=== PATIENT | male | born 1970 | race Two or more races ===

== ENCOUNTER 2018-03-14 01:30 | Emergency (ER) | payer MEDICARE, MEDICAID ==
[~2018-03-14] VITALS: Ht 180.3 cm; Wt 81.6 kg
[2018-03-14 02:31] LABS: BASOPHILS # (AUTO) 0.1 /CMM (0.0-0.2); BASOPHILS % (AUTO) 1.6 % (0.0-2.0); EOSINOPHILS % (AUTO) 2.3 % (0.0-6.0); HEMATOCRIT 48 % (39-51); HEMOGLOBIN 16.4 g/dL (13.5-17.5); LYMPHOCYTES % (AUTO) 34.5 % (20.0-44.0); MEAN CORPUSCULAR HEMOGLOBIN 32 PG (26.0-33.0); MEAN CORPUSCULAR HGB CONC 34 g/dl (31.0-36.0); MEAN CORPUSCULAR VOLUME 93 fL (80-96); MONOCYTES # (AUTO) 0.4 /CMM (0.1-1.30); MONOCYTES % (AUTO) 7.7 % (2.0-12.0); NEUTROPHILS # (AUTO) 3.2 /CMM (1.8-8.9); NEUTROPHILS % (AUTO) 53.9 % (43.0-81.0); PLATELET COUNT (AUTO) 353 /CMM (150-450); RDW COEFFICIENT OF VARIATION 12.1 (11.5-15.0); RED BLOOD CELL COUNT(AUTO) 5.16 MIL/uL (4.5-6.0); WHITE BLOOD COUNT (AUTO) 5.8 K/uL (4.3-11.0)
[2018-03-14 02:47] LABS: CALCIUM, SERUM 9.4 mg/dL (8.5-10.1); CARBON DIOXIDE 35 mmol/L (21-32); CHLORIDE 104 mmol/L (98-107); CREATININE 1.2 mg/dL (0.6-1.3); GLUCOSE 115 mg/dL (74-106); POTASSIUM 4.3 mmol/L (3.5-5.1); SODIUM SERUM 140 mmol/L (136-145); UREA NITROGEN, BLOOD 16 mg/dL (7-18)
[2018-03-14 02:53] LABS: ACETAMINOPHEN 0 ug/ml (10-30); ALANINE AMINOTRANSFERASE 26 U/L (12-78); ALBUMIN 3.8 g/dL (3.4-5.0); ALCOHOL, BLOOD < 3 mg/dL (0-0); ALKALINE PHOSPHATASE 107 U/L (46-116); ASPARTATE AMINOTRANSFERASE 17 U/L (15-37); BILIRUBIN,DIRECT 0.2 mg/dL (0.0-0.2); BILIRUBIN,TOTAL 1.3 mg/dL (0.2-1.0); SALICYLATE < 0.2 mg/dL (2.8-20.0); TOTAL PROTEIN, SERUM 6.8 g/dL (6.4-8.2)
--- NOTE | 2018-03-14 03:50 | NUR ---
ASSUMED CARE OF PT.
--- NOTE | 2018-03-14 03:51 | NUR ---
PT IS TRYING TO GIVE A URINE SAMPLE. PT IS DRINKING WATER. WILL CONTINUE TO CHECK ON PT.
[2018-03-14 04:42] LABS: APPEARANCE,URINE CLEAR (CLEAR); BILIRUBIN,URINE NEGATIVE (NEGATIVE); BLOOD, URINE NEGATIVE Ery/uL (NEGATIVE); COLOR,URINE YELLOW (YELLOW); KETONES,URINE NEGATIVE (NEGATIVE); LEUKOCYTE ESTERASE ,URINE NEGATIVE (NEGATIVE); NITRITE, URINE NEGATIVE (NEGATIVE); PROTEIN,URINE NEGATIVE (NEGATIVE); UGLUCOSE NEGATIVE (NEGATIVE); UROBILINOGEN,URINE 0.2 EU/dL (0.2)
--- NOTE | 2018-03-14 04:45 | NUR ---
[facility]A FOR S TRANSPORT ETA 1.5HR TRIP NUMBER [id number]
--- NOTE | 2018-03-14 06:29 | NUR ---
Patient discharged to [facility]IA [facility] in stable condition. Written and verbal after care instructions given. Patient verbalizes understanding of instruction. COPY OF ALL LABS GIVEN TO EMT FOR [facility]. PT IS MEDICALLY CLEARED. VSS
[2018-03-14 06:35] VITALS: BP 124/75
== END 2018-03-14 06:36 | disposition home or self-care (01) ==
LOC: ER 01:31
DX: R45.851 Suicidal ideations (principal); F31.9 Bipolar disorder, unspecified
CPT/HCPCS: 36415; 80048; 80076; 80305; 80329; 81001; 85025; 99285; A4606; G0480 ×2; 81000-TC; Z7610

== ENCOUNTER 2018-05-19 19:25 | Emergency (ER) | payer MEDICAID, MEDICARE, OTHER ==
[~2018-05-19] VITALS: Ht 180.3 cm; Wt 85.3 kg
--- NOTE | 2018-05-19 20:06 | NUR ---
URINE SPECIMEN OBTAINED AND SENT TO THE LAB.
[2018-05-19 20:16] VITALS: BP 138/90
--- NOTE | 2018-05-19 20:16 | NUR ---
DANIELE NEEDS MEDICAL CLEARANCE FOR [facility] PT STATES +SI/-HI WITH PLAN "TO RUN INTO TRAFFIC". PT AOX3 RR EVEN AND UNLABORED. NO SOB NOTED. NAD NOTED. NO NVD AT THIS TIME. PT GOWNED, PLACED ON SAFETY PRECUATIONS. PT WAITING FOR MD RAM.
--- NOTE | 2018-05-19 20:20 | NUR ---
DR. GARCIA AT BEDSIDE FOR EVAL.
[2018-05-19 20:28] LABS: BASOPHILS # (AUTO) 0.1 /CMM (0.0-0.2); BASOPHILS % (AUTO) 1.2 % (0.0-2.0); EOSINOPHILS % (AUTO) 0.7 % (0.0-6.0); HEMATOCRIT 45 % (39-51); HEMOGLOBIN 15.4 g/dL (13.5-17.5); LYMPHOCYTES # (AUTO) 1.8 /CMM (0.8-4.8); LYMPHOCYTES % (AUTO) 27.6 % (20.0-44.0); MEAN CORPUSCULAR HGB CONC 35 g/dl (31.0-36.0); MEAN CORPUSCULAR VOLUME 92 fL (80-96); MONOCYTES # (AUTO) 0.4 /CMM (0.1-1.30); MONOCYTES % (AUTO) 5.7 % (2.0-12.0); NEUTROPHILS # (AUTO) 4.2 /CMM (1.8-8.9); NEUTROPHILS % (AUTO) 64.8 % (43.0-81.0); PLATELET COUNT (AUTO) 381 /CMM (150-450); RDW COEFFICIENT OF VARIATION 12.9 (11.5-15.0); RED BLOOD CELL COUNT(AUTO) 4.83 MIL/uL (4.5-6.0); WHITE BLOOD COUNT (AUTO) 6.6 K/uL (4.3-11.0)
--- NOTE | 2018-05-19 20:32 | NUR ---
LAB AT BEDSIDE FOR BLOOD DRAW
[2018-05-19 20:44] LABS: CALCIUM, SERUM 9.4 mg/dL (8.5-10.1); POTASSIUM 4.4 mmol/L (3.5-5.1)
--- NOTE | 2018-05-19 20:49 | NUR ---
CLINICALS FAXED TO [facility].
--- NOTE | 2018-05-19 21:19 | NUR ---
PT LEFT WITHOUT D/C INSTRUCTIONS. DR. GARCIA AWARE
== END 2018-05-19 21:24 | disposition left against medical advice (07) ==
LOC: ER 19:31
DX: R45.851 Suicidal ideations (principal); F32.9 Major depressive disorder, single episode, unspecified; F17.200 Nicotine dependence, unspecified, uncomplicated; Z60.2 Problems related to living alone
CPT/HCPCS: 36415; 80048; 80305; 85025; 99284; A4606; G0480; Z7610

== ENCOUNTER 2018-09-18 02:02 | Emergency (ER) | payer MEDICARE, OTHER ==
[~2018-09-18] VITALS: Ht 182.9 cm; Wt 92.5 kg
[2018-09-18 02:20] VITALS: BP 148/90
--- NOTE | 2018-09-18 02:20 | NUR ---
PT BIBSELF C/C MEDICAL CLEARANCE. +SI, DENIES PLAN. -HI. NAD NOTED. RESP EVEN AND UNLABORED. PT IN BED 13. WILL CONTINUE TO MONITOR.
--- NOTE | 2018-09-18 02:49 | NUR ---
PT REQUESTED TO DRINK MORE WATER. URINE COLLECTION PENDING.
[2018-09-18 02:52] LABS: BASOPHILS # (AUTO) 0.1 /CMM (0.0-0.2); BASOPHILS % (AUTO) 0.8 % (0.0-2.0); EOSINOPHILS % (AUTO) 1.2 % (0.0-6.0); HEMATOCRIT 45 % (39-51); HEMOGLOBIN 15.9 g/dL (13.5-17.5); LYMPHOCYTES # (AUTO) 1.8 /CMM (0.8-4.8); LYMPHOCYTES % (AUTO) 23.7 % (20.0-44.0); MEAN CORPUSCULAR HGB CONC 35 g/dl (31.0-36.0); MEAN CORPUSCULAR VOLUME 94 fL (80-96); MONOCYTES # (AUTO) 0.8 /CMM (0.1-1.30); MONOCYTES % (AUTO) 10.2 % (2.0-12.0); NEUTROPHILS # (AUTO) 4.9 /CMM (1.8-8.9); NEUTROPHILS % (AUTO) 64.1 % (43.0-81.0); PLATELET COUNT (AUTO) 271 /CMM (150-450); RED BLOOD CELL COUNT(AUTO) 4.83 MIL/uL (4.5-6.0); WHITE BLOOD COUNT (AUTO) 7.7 K/uL (4.3-11.0)
[2018-09-18 03:03] LABS: CALCIUM, SERUM 9.8 mg/dL (8.5-10.1); CARBON DIOXIDE 31 mmol/L (21-32); CHLORIDE 100 mmol/L (98-107); GLUCOSE 107 mg/dL (74-106); POTASSIUM 3.8 mmol/L (3.5-5.1); SODIUM SERUM 140 mmol/L (136-145); UREA NITROGEN, BLOOD 27 mg/dL (7-18)
[2018-09-18 03:11] LABS: ALANINE AMINOTRANSFERASE 33 U/L (12-78); ALBUMIN 3.9 g/dL (3.4-5.0); ALCOHOL, BLOOD < 3 mg/dL (0-0); ALKALINE PHOSPHATASE 105 U/L (46-116); ASPARTATE AMINOTRANSFERASE 39 U/L (15-37); BILIRUBIN,DIRECT 0.3 mg/dL (0.0-0.2); TOTAL PROTEIN, SERUM 6.9 g/dL (6.4-8.2)
--- NOTE | 2018-09-18 03:12 | NUR ---
URINE COLLECTED AND SENT TO LAB
[2018-09-18 03:13] LABS: ACETAMINOPHEN 0 ug/ml (10-30); SALICYLATE 0.6 mg/dL (2.8-20.0)
--- NOTE | 2018-09-18 04:45 | NUR ---
[facility] WILL CALL NUMBER [phone]
--- NOTE | 2018-09-18 04:51 | NUR ---
CLINICALS FAXED OVER TO [facility]
--- NOTE | 2018-09-18 05:19 | NUR ---
RECEIVED A CALL FROM [facility] DAVIDSON STATING PT ELOPED [facility] AND WALKED OVER TO [facility]. MADE AWARE. INFORMED BY [facility] PT WILL NOT BE ALLOWED INTO THEIR FACILITY.
--- NOTE | 2018-09-18 05:22 | NUR ---
Patient eloped from facility. ER MD notified.
== END 2018-09-18 05:30 | disposition left against medical advice (07) ==
LOC: ER 02:07
DX: R45.851 Suicidal ideations (principal); F15.10 Other stimulant abuse, uncomplicated; F17.200 Nicotine dependence, unspecified, uncomplicated; F20.9 Schizophrenia, unspecified; F31.9 Bipolar disorder, unspecified; Z60.2 Problems related to living alone
CPT/HCPCS: 36415; 80048-TC; 80076-TC; 80305; 85025-TC; G0480

== ENCOUNTER → 2019-04-11 | Emergency (ER) | payer MEDICARE, OTHER ==
[~2019-04-11] VITALS: Ht 180.3 cm; Wt 81.2 kg
[2019-04-11 23:08] LABS: BASOPHILS # (AUTO) 0.1 /CMM (0.0-0.2); BASOPHILS % (AUTO) 1.1 % (0.0-2.0); EOSINOPHILS % (AUTO) 2.8 % (0.0-6.0); HEMATOCRIT 43 % (39-51); HEMOGLOBIN 14.8 g/dL (13.5-17.5); LYMPHOCYTES # (AUTO) 1.6 /CMM (0.8-4.8); LYMPHOCYTES % (AUTO) 24.7 % (20.0-44.0); MEAN CORPUSCULAR HGB CONC 34 g/dl (31.0-36.0); MEAN CORPUSCULAR VOLUME 94 fL (80-96); MONOCYTES # (AUTO) 0.6 /CMM (0.1-1.30); MONOCYTES % (AUTO) 8.7 % (2.0-12.0); NEUTROPHILS # (AUTO) 4.2 /CMM (1.8-8.9); NEUTROPHILS % (AUTO) 62.7 % (43.0-81.0); PLATELET COUNT (AUTO) 286 /CMM (150-450); RED BLOOD CELL COUNT(AUTO) 4.62 MIL/uL (4.5-6.0); WHITE BLOOD COUNT (AUTO) 6.6 K/uL (4.3-11.0)
--- NOTE | 2019-04-11 23:08 | NUR ---
DANIELE. TO ER BED 13. AAOX4. NO RSP DISTRESS NOTED. AMBULATORY. CAME IN FOR THOUGHTS OF SUICIDE. DENIES HI. PT ADMITS TO HEARING VOICES BUT NON AT THE TIME OF ASSESSMENT. PT IS STRIPPED OFF FROM HIS CLOTHINGS AND BELONGINGS WHICH IS PLACED IN THE LOCKERS IN THE UTILITY ROOM. SECURITY AT BEDSIDE FOR WANDING. BLOOD DRAW.
--- NOTE | 2019-04-11 23:08 | NUR ---
Note undone in EDM - 04/12/19 at 0133 by AKIL BIBSELF. TO ER BED 13. AAOX4. NO RSP DISTRESS NOTED. AMBULATORY. CAME IN FOR THOUGHTS OF SUICIDE. PT REPORTS THAT HE PLANS TO HURT HIMSELF BY RUNNING INTO TRAFFIC OR TAKE HIGH DOSES OF MEDICATION. DENIES HI. PT ADMITS TO HEARING VOICES BUT NON AT THE TIME OF ASSESSMENT. PT IS STRIPPED OFF FROM HIS CLOTHINGS AND BELONGINGS WHICH IS PLACED IN THE LOCKERS IN THE UTILITY ROOM. SECURITY AT BEDSIDE FOR WANDING. BLOOD DRAW.
[2019-04-11 23:15] LABS: CALCIUM, SERUM 8.7 mg/dL (8.5-10.1); CREATININE 0.9 mg/dL (0.6-1.3); POTASSIUM 4.1 mmol/L (3.5-5.1)
[2019-04-11 23:21] LABS: ALBUMIN 3.6 g/dL (3.4-5.0); BILIRUBIN,DIRECT 0.2 mg/dL (0.0-0.2); BILIRUBIN,TOTAL 0.7 mg/dL (0.2-1.0); TOTAL PROTEIN, SERUM 6.5 g/dL (6.4-8.2)
[2019-04-11 23:24] LABS: SALICYLATE 0.4 mg/dL (2.8-20.0)
--- NOTE | 2019-04-12 01:03 | NUR ---
[employer] AT BEDSIDE
[2019-04-12 01:34] VITALS: BP 127/80
--- NOTE | 2019-04-12 01:45 | NUR ---
PT STATE THAT HE IS NO LONGER SUICIDAL AND DOES NOT WANT TO STAY AT THE ER. PT VERBALIZES THAT HE WILL FOLLOW UP OUTPATIENT ON HIS OWN. AWARE.
== END | disposition left against medical advice (07) ==
LOC: ER 22:46
DX: R45.851 Suicidal ideations (principal); F20.9 Schizophrenia, unspecified; F31.9 Bipolar disorder, unspecified; F17.200 Nicotine dependence, unspecified, uncomplicated; F17.210 Nicotine dependence, cigarettes, uncomplicated
CPT/HCPCS: 36415; 80048; 80076; 80307; 80329; 85025; 99284; G0480

== ENCOUNTER 2021-02-14 16:24 | Emergency (ER) | payer MEDICARE, OTHER ==
--- NOTE | 2021-02-14 17:00 | NUR ---
CALLED IN ED WAITING ROOM. NO RESPONSE
--- NOTE | 2021-02-14 17:17 | NUR ---
CALLED IN ED WAITING ROOM. NO RESPONSE.
--- NOTE | 2021-02-14 17:41 | NUR ---
CALLED IN ED WAITING ROOM FOR THE 3RD TIME. NO RESPONSE. LEFT W/OUT BEING TRIAGE
== END 2021-02-14 17:45 | disposition home or self-care (01) ==
LOC: ER 16:24
DX: Z53.21 Procedure and treatment not carried out due to patient leaving prior to being seen by health care provider (principal)

== ENCOUNTER 2021-08-25 20:38 | Emergency (ER) | payer MEDICARE, OTHER ==
--- NOTE | 2021-08-25 21:00 | NUR ---
CALLED FOR PRIYA NOT IN WAITING ROOM.
--- NOTE | 2021-08-25 21:30 | NUR ---
CALLED FOR TRIAGE NOT IN WAITING ROOM.
--- NOTE | 2021-08-25 22:21 | NUR ---
PATIENT LEFT WITHOUT BEING SEEN.
== END 2021-08-25 22:22 | disposition left against medical advice (07) ==
LOC: ER 20:42
DX: Z53.21 Procedure and treatment not carried out due to patient leaving prior to being seen by health care provider (principal)

== ENCOUNTER 2021-09-16 07:19 | Emergency (ER) | payer MEDICARE, OTHER ==
[~2021-09-16] VITALS: Ht 170.2 cm; Wt 102.1 kg
--- NOTE | 2021-09-16 07:30 | NUR ---
Pt AAO- Appropriate and responsive able to answer questions. Directable and able to follow commands Admits homelessness. States "Hx of Suicidal thoughts"Denies Any specific plan at this time. When updated with Duration/Time Pt stating " I dont want to wait long" Refusing to provide urine
[2021-09-16 07:41] VITALS: BP 112/74
--- NOTE | 2021-09-16 08:06 | NUR ---
Pt states "I dont want to wait- Leaving." Eloped
== END 2021-09-16 08:08 | disposition home or self-care (01) ==
LOC: ER 07:22
DX: Z13.30 Encounter for screening examination for mental health and behavioral disorders, unspecified (principal); F17.210 Nicotine dependence, cigarettes, uncomplicated; F20.9 Schizophrenia, unspecified; F31.9 Bipolar disorder, unspecified

== ENCOUNTER 2022-02-03 01:12 | Emergency (ER) | payer MEDICARE, OTHER | END 2022-02-03 02:40 | disposition left against medical advice (07) | LOC: ER 01:17 | DX: Z53.21 Procedure and treatment not carried out due to patient leaving prior to being seen by health care provider (principal) ==

== ENCOUNTER 2022-02-07 18:21 | Emergency (ER) | payer MEDICARE, OTHER ==
[~2022-02-07] VITALS: Ht 170.2 cm; Wt 102.1 kg
--- NOTE | 2022-02-07 18:35 | NUR ---
BIBS STATING THAT HE WANTS TO OVERDOSE ON PILLS -HI, WANT VOLUNTARY ADMISSION TO [facility], [facility]. SECURITY WABDED THE PT, BELONGINGS TAKEN. VITALS ARE WITHIN NORMAL LIMITS.
[2022-02-07 18:36] VITALS: BP 135/81
--- NOTE | 2022-02-07 19:25 | NUR ---
Patient eloped from facility. ER MD notified.
[2022-02-07 19:53] LABS: CARBON DIOXIDE 33 mmol/L (21-32); CHLORIDE 106 mmol/L (98-107); CREATININE 0.9 mg/dL (0.6-1.3); GLUCOSE 114 mg/dL (74-106); POTASSIUM 3.8 mmol/L (3.5-5.1); SODIUM SERUM 144 mmol/L (136-145); UREA NITROGEN, BLOOD 15 mg/dL (7-18)
[2022-02-07 19:54] LABS: BASOPHILS # (AUTO) 0.1 K/uL (0.0-0.2); EOSINOPHILS % (AUTO) 4.2 % (0.0-6.0); HEMATOCRIT 43 % (39-51); HEMOGLOBIN 14.8 g/dL (13.5-17.5); LYMPHOCYTES # (AUTO) 1.2 K/uL (0.8-4.8); MEAN CORPUSCULAR HGB CONC 34 g/dl (31.0-36.0); MEAN CORPUSCULAR VOLUME 93 fL (80-96); MONOCYTES # (AUTO) 0.4 K/uL (0.1-1.30); MONOCYTES % (AUTO) 7.9 % (2.0-12.0); NEUTROPHILS # (AUTO) 3.4 K/uL (1.8-8.9); NEUTROPHILS % (AUTO) 64.9 % (43.0-81.0); PLATELET COUNT (AUTO) 268 K/uL (150-450); RED BLOOD CELL COUNT(AUTO) 4.64 MIL/uL (4.5-6.0); WHITE BLOOD COUNT (AUTO) 5.3 K/uL (4.3-11.0)
[2022-02-07 19:57] LABS: ACETAMINOPHEN 5 ug/ml (10-30); ALANINE AMINOTRANSFERASE 29 U/L (12-78); ALBUMIN 3.7 g/dL (3.4-5.0); ALCOHOL, BLOOD < 3 mg/dL (0-0); ALKALINE PHOSPHATASE 133 U/L (46-116); ASPARTATE AMINOTRANSFERASE 20 U/L (15-37); BILIRUBIN,DIRECT 0.2 mg/dL (0.0-0.2); BILIRUBIN,TOTAL 0.8 mg/dL (0.2-1.0); TOTAL PROTEIN, SERUM 6.8 g/dL (6.4-8.2)
== END 2022-02-07 19:26 | disposition left against medical advice (07) ==
LOC: ER 18:26
DX: Z04.6 Encounter for general psychiatric examination, requested by authority (principal); F20.9 Schizophrenia, unspecified; F31.9 Bipolar disorder, unspecified; F17.210 Nicotine dependence, cigarettes, uncomplicated
CPT/HCPCS: 36415; 80048-TC; 80076-TC; 85025-TC; G0480

== ENCOUNTER 2022-03-08 13:05 | Emergency (ER) | payer MEDICARE, OTHER ==
[~2022-03-08] VITALS: Ht 180.3 cm; Wt 103.9 kg
[2022-03-08 13:23] VITALS: BP 119/69
--- NOTE | 2022-03-08 13:23 | NUR ---
BIBS C/O RIGHT KNEE PAIN X 5 DAYS,DENIES ANY TRAUMA
--- NOTE | 2022-03-08 14:30 | NUR ---
PT ELOPED FROM EMERGENCY ROOM, LAST SEEN AT 1415.
== END 2022-03-08 14:54 | disposition left against medical advice (07) ==
LOC: ER 13:18
DX: Z53.21 Procedure and treatment not carried out due to patient leaving prior to being seen by health care provider (principal); M25.561 Pain in right knee; F20.9 Schizophrenia, unspecified

== ENCOUNTER 2022-04-18 03:43 | Emergency (ER) | payer MEDICARE, OTHER ==
--- NOTE | 2022-04-18 03:55 | NUR ---
CALLED TO TRIAGE NO ANSWER
--- NOTE | 2022-04-18 04:15 | NUR ---
CALLED TO TRIAGE NO ANSWER
== END 2022-04-18 04:20 | disposition left against medical advice (07) ==
LOC: ER 03:43
DX: Z53.21 Procedure and treatment not carried out due to patient leaving prior to being seen by health care provider (principal)